=== PATIENT | male | born 1975 | race Caucasian/White ===

== ENCOUNTER 2021-02-09 11:15 | Outpatient (CLI) | payer OTHER, SELFPAY | END 2021-02-09 23:59 | disposition short-term general hospital (02) | LOC: LABSPEC 11:16 | PROVIDERS: Referring Provider Physician Assistant Surgical; Visit Provider Physician Assistant Surgical | DX: U07.1 COVID-19 (principal) | CPT/HCPCS: 87635; U0003; U0005 ==